=== PATIENT | male | born 1960 | race Caucasian/White ===

== ENCOUNTER 2021-03-30 07:31 | Day surgery (SDC) | payer OTHER ==
[2021-03-30] MEDS ORDERED: Ringers Lactate 1,000 ML IV ONE (09:01)
[2021-03-30] MEDS ORDERED: CEFAZOLIN/NS 1gm 1 GM/50 ML BAG ONE (09:01)
[2021-03-30] MEDS ORDERED: MIDAZOLAM HCL 2 MG/2 ML INJ ONE (09:59)
[2021-03-30] MEDS ORDERED: ONDANSETRON 4 MG/2 ML VIAL ONE (09:59)
[2021-03-30] MEDS ORDERED: dexAMETHasone 10 MG/ML VIAL ONE (09:59)
[2021-03-30] MEDS ORDERED: propofoL 200 MG/20 ML VIAL IV ONE (09:59)
[2021-03-30] MEDS ORDERED: FENTANYL CITR 100 MCG/2 ML ONE (09:59)
[2021-03-30] MEDS ORDERED: LIDOCAINE 2% MPF 5 ML VIAL ONE (09:59)
[2021-03-30] MEDS ORDERED: BUPIVACAINE 0.5% PF 10 ML VIAL ONE (10:00)
[2021-03-30] MEDS ORDERED: KETOROLAC 30 MG/ML INJ ONE (10:00)
[2021-03-30] MEDS ORDERED: MINERAL OIL, LITE 10 ML VIAL ONE (10:42)
[2021-03-30 10:57] VITALS: O2SAT 100
[2021-03-30] MEDS ORDERED: Mastisol Adhesive Liq ONE (11:10)
[2021-03-30 11:52] VITALS: BP 142/82
[2021-03-30 12:23] VITALS: TEMP 97.9
--- NOTE | 2021-03-30 15:56 | OP ---
Surgeon: Miller Garcia MD Preoperative Diagnosis: Open wound of the left middle finger tip. Postoperative Diagnosis: Open wound of the left middle finger tip. Procedure Performed: Debridement of skin and subcutaneous tissue, full-thickness skin graft. Anesthesia: General. Procedure In Detail: After satisfactory induction of general anesthesia, the left hand and left groi n were prepped with Betadine scrub and paint. Dry sterile drapes were applied in usual manner. The arm was elevated, exsanguinated with an Esmarch, tourniquet inflated to 250 mmHg. A scalpel was used to debride skin and subcutaneous tissue around the open wound flexor surface approximately 1.5 x 1.5 cm. The wound was jet lavaged, irrigated, and the skin graft was harvested from the left groin. El liptical incision was made approximately 3 x 1.5 cm, closed in layers with 4-0 PDS deep dermis and 4- 0 PDS running subcuticular followed by tincture of benzoin, Steri-Strips, 4 x 4, tape. The skin gianna t hold in place with was tied over the end of the sutures compressive dressing. Then, 2-inch Braulio was applied to the finger after tourniquet was released. The patient tolerated the procedure well and returned to recovery. PILLO/SHELLIE Voice ID: [id number] Report ID: [id number]
== END 2021-03-30 12:11 | disposition home or self-care (01) ==
LOC: OR 07:31
PROVIDERS: ATTEND Specialist
PROC: 0JR Subcutaneous Tissue and Fascia, Replacement (ICD-10-PCS; 2021-03-30)
PROC: 0JB80ZZ Excision of Abdomen Subcutaneous Tissue and Fascia, Open Approach (ICD-10-PCS; 2021-03-30)
PROC: 0JDK0ZZ Extraction of Left Hand Subcutaneous Tissue and Fascia, Open Approach (ICD-10-PCS; principal; 2021-03-30 09:00)
DX: S61.203A Unspecified open wound of left middle finger without damage to nail, initial encounter (principal); Z20.822 Contact with and (suspected) exposure to COVID-19
CPT/HCPCS: 88304; 11042; 15757; U0003; J2704; J2250; J3010; J1100; J0690; J7120; J2405; 88302